=== PATIENT | male | born 2000 | race Caucasian/White ===

== ENCOUNTER 2022-08-22 16:12 | Emergency (ER) | payer OTHER, SELFPAY ==
[2022-08-22 16:24] VITALS: BP 156/91; PULSE 72; RESP 16; TEMP 37.3; O2SAT 99
--- NOTE | 2022-08-22 16:28 | ED.URI ---
HPI - URI/Sore Throat General Chief Complaint: Upper Respiratory Infection Stated Complaint: COUGH/CONGESTION/SOB History of Present Illness HPI Narrative: 22 yo M presents to urgent care with complaints of a cough x 6-7 weeks. Pt states he has also had congestion and is now developing a ROBERT. Pt denies any SOB or chest pain. Denies any fevers, chills, sore throat, or ear pain. Denies any N/V/D. Pt has been taking Mucinex, Dayquil, and Nyquil without relief. Review of Systems Review of Systems: Pertinent positives and pertinent negatives per HPI. PMFSH Comments At the time of my signature, I reviewed and agree with the nursing past medical, surgical, social, and family history. There is no relevant family history pertinent to the patient complaint. Exam Narrative: GENERAL: This is a well-nourished, well-developed patient, in no apparent distress. HEAD: normocephalic, atraumatic. EYES: PERRL. Sclera clear/white. Vision is grossly intact. EARS: External ears normal, auditory canals clear and without drainage, TMs normal without perforation. Hearing grossly intact. NOSE: congested THROAT: Mucous membranes moist, posterior pharynx clear. NECK: Neck supple, non-tender without lymphadenopathy, masses or thyromegaly. CARDIOVASCULAR: Regular rate and rhythm without murmurs, gallops, or rubs. RESPIRATORY: Clear to auscultation. Breath sounds equal bilaterally. No wheezes, rales, or rhonchi. GASTROINTESTINAL: Abdomen soft, non-tender, nondistended. Bowel sounds are active. No hepato-splenomegaly, or palpable masses. No guarding. SKIN: warm, intact with no suspicious lesions or rash, good texture and turgor. NEURO: awake, alert, and oriented to person, place and time. There were no obvious focal neurologic abnormalities. Course Course Level of Care: Express Care Visit Vital Signs Vital signs: Vital Signs Temperature 99.2 F 08/22/22 16:24 Pulse Rate 72 08/22/22 16:24 Respiratory Rate 16 08/22/22 16:24 Blood Pressure 156/91 H 08/22/22 16:24 Pulse Oximetry 99 08/22/22 16:24 Oxygen Delivery Room Air 08/22/22 16:24 Temperature 99.2 F 08/22/22 16:24 Pulse Rate 72 08/22/22 16:24 Respiratory Rate 16 08/22/22 16:24 Blood Pressure 156/91 H 08/22/22 16:24 Pulse Oximetry 99 08/22/22 16:24 Oxygen Delivery Room Air 08/22/22 16:24 reviewed. MDM - URI/Sore Throat MDM Narrative Medical decision making narrative: Take steroids as directed. May use the inhaler every 4-6 hours as needed for coughing. Increase fluids at home. Avoid any and all smoke. May use a humidifier in the bedroom. Increase your Vitamin C. Follow-up with personal physician in 2-5 days. Return to urgent care or go to the ER for new or worsening symptoms. Avoid smoking/second-hand smoke. Continue to take Tylenol or Motrin for pain. Increase your Vitamin C intake. Use a humidifier or vaporizer at night. Take Medications as prescribed. Drink plenty of water. 8-10 glasses per day. Use flonase 2 times per day for 5 days then as needed Take mucinex 2 times per day and be sure to take with 8oz of water. Follow up with Primary provider if not getting better. Go to the ER for new or worsening symptoms. Differential Diagnosis Differential diagnosis: Likely upper respiratory infection, sinusitis and bronchitis Critical Care Time Critical Care Time Critical Care Time: No Discharge Plan Discharge Clinical Impression: Bronchitis Sinusitis Qualifiers: Sinusitis location: unspecified location Chronicity: unspecified Qualified Code(s): J32.9 - Chronic sinusitis, unspecified Patient Disposition: Home, Self-Care Condition: Stable Instructions: Antibiotic Form, Sinusitis (ED), Acute Bronchitis (ED) Additional Instructions: Take steroids as directed. May use the inhaler every 4-6 hours as needed for coughing. Increase fluids at home. Avoid any and all smoke. May use a humidifier in the bedroom. Increase your Vit
== END 2022-08-22 16:38 | disposition home or self-care (01) ==
PROVIDERS: Emergency Provider Nurse Practitioner Family
DX: J40 Bronchitis, not specified as acute or chronic (principal); J32.9 Chronic sinusitis, unspecified
CPT/HCPCS: 99213; G0463